=== PATIENT | male | born 1990 | race Caucasian/White ===

== ENCOUNTER 2017-09-17 17:06 | Emergency (ER) | payer OTHER ==
[~2017-09-17] VITALS: Ht 180.3 cm; Wt 92.5 kg
[~2017-09-17 17:06] MED LIST: ACETAMINOPHEN500 MG PO; AMOXICILLIN875 MG PO; IBUPROFEN200 MG PO; IBUPROFEN600 MG PO
[2017-09-17] MEDS ORDERED: CEPHALEXIN500 MG PO (19:41)
== END 2017-09-17 20:08 | disposition home or self-care (01) ==
LOC: ED 17:06
DX: J01.90 Acute sinusitis, unspecified (principal); Z87.891 Personal history of nicotine dependence
CPT/HCPCS: 87502; 99283

== ENCOUNTER 2018-01-23 20:59 | Emergency (ER) | payer SELFPAY ==
[~2018-01-23] VITALS: Ht 180.3 cm; Wt 87.5 kg
[~2018-01-23 20:59] MED LIST changes: +CEPHALEXIN500 MG PO
[2018-01-23] MEDS ORDERED: BENADRYL25 MG PO (21:10)
== END 2018-01-23 22:45 | disposition home or self-care (01) ==
LOC: ED 20:59
DX: S80.861A Insect bite (nonvenomous), right lower leg, initial encounter (principal); Z79.899 Other long term (current) drug therapy; W57.XXXA Bitten or stung by nonvenomous insect and other nonvenomous arthropods, initial encounter
CPT/HCPCS: 99282

== ENCOUNTER 2019-09-12 12:26 | Emergency (ER) | payer SELFPAY ==
[~2019-09-12] VITALS: Ht 180.3 cm; Wt 87.5 kg
[~2019-09-12 12:26] MED LIST changes: +BENADRYL25 MG PO; +CARAFATE1 GM/10 ML PO; +OMEPRAZOLE20 MG PO
[2019-09-12] MEDS ORDERED: NORCO 5-325 TA1 EACH PO (13:56)
[2019-09-12] MEDS ORDERED: CIPRO500 MG PO (13:56)
[2019-09-15] MEDS ORDERED: TRAMADOL HCL50 MG PO (03:05)
[2019-09-15] MEDS ORDERED: CEPHALEXIN500 MG PO (03:05)
== END 2019-09-12 14:03 | disposition home or self-care (01) ==
LOC: ED 12:26
DX: N41.9 Inflammatory disease of prostate, unspecified (principal); N39.0 Urinary tract infection, site not specified
CPT/HCPCS: 81001; 99283

== ENCOUNTER 2021-01-22 05:26 | Emergency (ER) | payer SELFPAY ==
[~2021-01-22] VITALS: Ht 180.3 cm; Wt 83.9 kg
[~2021-01-22 05:26] MED LIST changes: +CIPRO500 MG PO; +NORCO 5-325 TA1 EACH PO; +TRAMADOL HCL50 MG PO
--- OUTSIDE RECORDS SUMMARY | 2021-01-22 05:32 | XMS ---
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 Care History Medical/Surgical 09/16/2019 [facility] Patient had gone to walk in for UTI on 09/10/2019 but still had pain.\T\nbsp; Went to Emergency Room after midnight and was given proper anti biotic. 09/16/2019 [facility] - Patient is currently established with [facility]. If patient is seen in the ED during business hours. Please contact [facility]Ws at [facility]. Care Recommendation: If this patient has had 5 or more Emergency Department visits in the last 12 months.\T\nbsp; Patient will require education on the scope and purpose of the ED as an acute care provider not a Primary Care Provider and should not be utilized for chronic conditions.\T\nbsp; These are guidelines and the provider should exercise clinical judgment when providing care. E.D. VISIT COUNT (12 MO.) 1 [facility] TOTAL 1 NOTE: Visits indicate total known visits. ED/UCC VISIT TRACKING (12 MO.) 01/22/2021 05:27 [facility] TYPE: Emergency COMPLAINT: - PAIN WHEN URINATING INPATIENT VISIT TRACKING (12 MO.) No inpatient visits to display in this time frame [id number]
[2021-01-22] MEDS ORDERED: CEPHALEXIN500 MG PO (06:40)
[2021-01-22] MEDS ORDERED: ULTRAM50 MG PO (06:40)
== END 2021-01-22 06:47 | disposition home or self-care (01) ==
LOC: ED 05:26
DX: N39.0 Urinary tract infection, site not specified (principal); Z87.891 Personal history of nicotine dependence
CPT/HCPCS: 81001; 87088; 99283

== ENCOUNTER 2021-11-29 19:20 | Emergency (ER) | payer SELFPAY ==
[~2021-11-29] VITALS: Ht 177.8 cm; Wt 90.0 kg
[~2021-11-29 19:20] MED LIST changes: +ULTRAM50 MG PO
--- OUTSIDE RECORDS SUMMARY | 2021-11-29 19:22 | XMS ---
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 CRITERIA MET - Group Notification CARE PROVIDERS CYNTHIA MATTA Nurse Practitioner: 09/16/2019-Current PHONE: Unknown Darío has no Care Guidelines for this patient. Care History Medical/Surgical 09/16/2019 [facility] Patient had gone to walk in for UTI on 09/10/2019 but still had pain.\T\nbsp; Went to Emergency Room after midnight and was given proper anti biotic. E.D. VISIT COUNT (12 MO.) 3 [facility]. TOTAL 3 NOTE: Visits indicate total known visits. ED/UCC VISIT TRACKING (12 MO.) 11/29/2021 19:20 [facility] TYPE: Emergency COMPLAINT: - DENTAL PAIN 03/06/2021 13:16 [facility] TYPE: Emergency COMPLAINT: - L SIDED FACIAL SWELLING 01/22/2021 05:27 [facility] TYPE: Emergency COMPLAINT: - PAIN WHEN URINATING DIAGNOSES: - Urinary tract infection, site not specified - Dysuria - Personal history of nicotine dependence INPATIENT VISIT TRACKING (12 MO.) No inpatient visits to display in this time frame [id number]
[2021-11-29] MEDS ORDERED: TRAMADOL HCL50 MG PO (20:31)
[2021-11-29] MEDS ORDERED: AMOXICILLIN500 MG PO (20:31)
== END 2021-11-29 20:50 | disposition home or self-care (01) ==
LOC: ED 19:20
DX: K02.9 Dental caries, unspecified (principal); K04.7 Periapical abscess without sinus
CPT/HCPCS: 99282

== ENCOUNTER 2022-01-17 15:21 | Emergency (ER) | payer OTHER ==
[~2022-01-17] VITALS: Ht 177.8 cm; Wt 89.3 kg
[~2022-01-17 15:21] MED LIST changes: +AMOXICILLIN500 MG PO
--- OUTSIDE RECORDS SUMMARY | 2022-01-17 15:24 | XMS ---
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 CRITERIA MET - Group Notification - PDMP CARE PROVIDERS CYNTHIA MATTA Nurse Practitioner: 09/16/2019-Current PHONE: Unknown Darío has no Care Guidelines for this patient. Care History Medical/Surgical 09/16/2019 [facility] Patient had gone to walk in for UTI on 09/10/2019 but still had pain.\T\nbsp; Went to Emergency Room after midnight and was given proper anti biotic. E.D. VISIT COUNT (12 MO.) 4 [facility]. TOTAL 4 NOTE: Visits indicate total known visits. ED/UCC VISIT TRACKING (12 MO.) 01/17/2022 15:22 [facility] TYPE: Emergency COMPLAINT: - BLOOD IN STOOL 11/29/2021 19:20 [facility] TYPE: Emergency COMPLAINT: - DENTAL PAIN DIAGNOSES: - Dental caries, unspecified - Other specified disorders of teeth and supporting structures - Periapical abscess without sinus 03/06/2021 13:16 [facility] TYPE: Emergency COMPLAINT: - L SIDED FACIAL SWELLING 01/22/2021 05:27 [facility] TYPE: Emergency COMPLAINT: - PAIN WHEN URINATING DIAGNOSES: - Urinary tract infection, site not specified - Dysuria - Personal history of nicotine dependence INPATIENT VISIT TRACKING (12 MO.) No inpatient visits to display in this time frame [id number]
== END 2022-01-17 15:59 | disposition home or self-care (01) ==
LOC: ED 15:21
DX: K60.2 Anal fissure, unspecified (principal)
CPT/HCPCS: 99282

== ENCOUNTER 2022-05-23 11:21 | Emergency (ER) | payer OTHER ==
[~2022-05-23] VITALS: Ht 177.8 cm; Wt 88.9 kg
--- OUTSIDE RECORDS SUMMARY | 2022-05-23 11:24 | XMS ---
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 CRITERIA MET - Group Notification - PDMP CARE PROVIDERS CYNTHIA MATTA Nurse Practitioner: 09/16/2019-Current PHONE: Unknown Darío has no Care Guidelines for this patient. Care History Medical/Surgical 09/16/2019 [facility] Patient had gone to walk in for UTI on 09/10/2019 but still had pain.\T\nbsp; Went to Emergency Room after midnight and was given proper anti biotic. E.D. VISIT COUNT (12 MO.) 3 [facility]. TOTAL 3 NOTE: Visits indicate total known visits. ED/UCC VISIT TRACKING (12 MO.) 05/23/2022 11:22 [facility] TYPE: Emergency COMPLAINT: - POSS UTI 01/17/2022 15:22 [facility] TYPE: Emergency COMPLAINT: - BLOOD IN STOOL DIAGNOSES: - Melena - Anal fissure, unspecified 11/29/2021 19:20 [facility] TYPE: Emergency COMPLAINT: - DENTAL PAIN DIAGNOSES: - Dental caries, unspecified - Other specified disorders of teeth and supporting structures - Periapical abscess without sinus INPATIENT VISIT TRACKING (12 MO.) No inpatient visits to display in this time frame [email or web address]
[2022-05-23] MEDS ORDERED: CEPHALEXIN500 M1 PO (14:55)
[2022-05-23] MEDS ORDERED: ULTRAM50 MG PO (14:56)
== END 2022-05-23 15:11 | disposition home or self-care (01) ==
LOC: ED 11:21
DX: N39.0 Urinary tract infection, site not specified (principal)
CPT/HCPCS: 81001; 99283; A9270

== ENCOUNTER 2025-01-25 23:25 | Emergency (ER) | payer OTHER ==
[~2025-01-25] VITALS: Ht 177.8 cm; Wt 90.6 kg
[~2025-01-25 23:25] MED LIST changes: +CEPHALEXIN500 M1 PO
[2025-01-26 00:10] LABS: BILIRUBIN, URINE NEGATIVE (negative); BLOOD/HGB, URINE MODERATE (Negative); KETONE, URINE SMALL (Negative); LEUK ESTERASE, URINE SMALL (negative); NITRITE, URINE POSITIVE (negative)
[2025-01-26 00:16] LABS: RED BLOOD CELLS, URINE >50 /hpf (0-5)
[2025-01-26 00:18] LABS: CRYSTALS, URINE NONE SEEN (0-1+); EPITHELIAL CELLS, URINE SQUAMOUS 2+ /lpf (0-1+)
[2025-01-26 00:19] LABS: CASTS, URINE GRANULAR 2+ \\lpf
[2025-01-26 00:20] LABS: BACTERIA, URINE 1+ /hpf (negative); COLLECTION TYPE, URINE CLEAN CATCH; REFLEX CULTURE, URINE No (No)
[2025-01-26] MEDS ORDERED: CEPHALEXIN500 M1 PO (00:20)
[2025-01-26] MEDS ORDERED: CEPHALEXIN MONOHYDRATE 500 MG HOME.PACK PO ONE (00:30)
[2025-01-26 00:40] VITALS: BP 120/79
[2025-01-26 01:33] LABS: N. GONORRRHOEAE BY PCR NOT DETECTED (NOT DETECT)
== END 2025-01-26 00:40 | disposition home or self-care (01) ==
LOC: ED 23:25
PROVIDERS: Internal Medicine
DX: N39.0 Urinary tract infection, site not specified (principal); Z79.2 Long term (current) use of antibiotics
CPT/HCPCS: 81001; 86922; 99283; A9270